=== PATIENT | male | born 1975 | race Two or more races ===

== ENCOUNTER 2022-02-04 13:24 | Inpatient (IN) | payer OTHER ==
[~2022-02-04] VITALS: Ht 167.6 cm; Wt 91.9 kg
[2022-02-04 17:29] LABS: Basophils # (auto) 0.1 10 ^3/uL (0-0.2); Basophils % (auto) 1.2 % (0.0-2.0); Eosinophils # (auto) 0.2 10 ^3/uL (0-0.8); Eosinophils % (auto) 2.6 % (0.0-7.0); Hemoglobin 15.5 g/dL (13.5-17.5); Lymphocytes # (auto) 1.8 10 ^3/uL (0.4-5.4); Lymphocytes % (auto) 20.7 % (10.0-50.0); Mean Corpuscular Hemoglobin 28.1 pg (28.0-32.0); Mean Corpuscular Hgb Conc. 34.4 g/dL (32.0-36.0); Mean Corpuscular Volume 81.8 fL (80.0-100.0); Monocytes % (auto) 10.9 % (0.0-12.0); Neutrophils # (auto) 5.7 10 ^3/uL (1.6-8.6); Neutrophils % (auto) 64.6 % (37.0-80.0); Nucleated Red Blood Cells % 0.2 %; Red Cell Distribution Width 13.9 % (11.8-14.3); White Blood Cell 8.9 10^3/uL (4.4-10.8)
[2022-02-04 17:30] LABS: Albumin 3.2 g/dL (3.4-5.0); Calcium 9.5 mg/dL (8.5-10.1); Potassium 3.2 mmol/L (3.5-5.1)
[2022-02-04 17:34] LABS: BUN/Creatinine Ratio 12.2; Bilirubin, Total 0.3 mg/dL (0.2-1.0); Total Protein 8.1 g/dL (6.4-8.2)
[2022-02-05] MEDS ORDERED: POTASSIUM CHL 20 Meq TABLET PO ONE (02:30)
[2022-02-05] MEDS ORDERED: VANCOMYCIN 1GM/250ML 250 ML IV ONE (02:30)
[2022-02-05] MEDS ORDERED: SODIUM CHLORIDE 0.9% 1,000 ML IV ONE (02:30)
[2022-02-05] MEDS ORDERED: VANCOMYCIN PER PHARMACY 0 MG IV SCH (04:00)
[2022-02-05] MEDS: ENOXAPARIN SOD 100 MG/1 ML SYRINGE SC SCH ×2 (10:00→21:45)
[2022-02-05] MEDS: VANCOMYCIN 1GM/250ML 250 ML IV SCH ×2 (12:00→21:44)
[2022-02-05 13:30] VITALS: BP 124/72
[2022-02-05 14:00] VITALS: BP 124/72
[2022-02-05] MEDS: HYDROcodone-ACET 10/325MG TAB PO PRN ×2 (14:24→20:23)
[2022-02-05 17:00] VITALS: BP 116/78
[2022-02-05 22:00] VITALS: BP 92/52
[2022-02-05] MEDS: PIPERACILLIN-TAZOB 3.375GM 100 ML IV SCH (22:53)
[2022-02-06] MEDS: HYDROcodone-ACET 10/325MG TAB PO PRN (03:49)
[2022-02-06 05:00] VITALS: BP 94/56
[2022-02-06] MEDS: PIPERACILLIN-TAZOB 3.375GM 100 ML IV SCH ×3 (05:18→21:52)
[2022-02-06] MEDS: ENOXAPARIN SOD 100 MG/1 ML SYRINGE SC SCH (08:48)
[2022-02-06] MEDS: VANCOMYCIN 1GM/250ML 250 ML IV SCH ×2 (08:48→18:08)
[2022-02-06 08:50] VITALS: BP 111/72
[2022-02-06 09:05] LABS: INR 1.03 (0.9-1.15); Partial Thromboplastin Time 31.3 sec (24.6-33.4)
[2022-02-06 12:05] LABS: Urine WBC None Seen /hpf (0 - 3)
[2022-02-06 12:31] LABS: Urine Bacteria NONE SEEN /hpf (None Seen); Urine Blood Negative /uL (Negative); Urine Specific Gravity 1.006 (1.001-1.035)
[2022-02-06 13:00] VITALS: BP 113/70
[2022-02-06] MEDS ORDERED: KETOROLAC TROMETH 30 MG/ML 1ML VIAL ONE (16:40)
[2022-02-06] MEDS ORDERED: GLYCOPYRROLATE 0.2 MG/ML 1ML VIAL ONE (16:40)
[2022-02-06] MEDS ORDERED: ONDANSETRON HCL 4 MG/2 ML VIAL ONE (16:40)
[2022-02-06] MEDS ORDERED: PROPOFOL 10 MG/ML 20 ML IV ONE (16:40)
[2022-02-06] MEDS ORDERED: DexAMETHasone SOD PHOS 10MG/1ML VIAL INJ ONE (16:40)
[2022-02-06] MEDS ORDERED: HYDROcodone-ACET 5/325MG TAB PO PRN (17:15)
[2022-02-06] MEDS ORDERED: MORPHINE SULFATE INJ 2 MG/ml SYRG IV PRN (17:15)
[2022-02-06] MEDS: HYDROcodone-ACET 5/325MG TAB PO PRN ×2 (17:54→22:23)
[2022-02-06 22:00] VITALS: BP 126/80
[2022-02-07] MEDS: VANCOMYCIN 1GM/250ML 250 ML IV SCH ×2 (01:42→08:54)
[2022-02-07 05:00] VITALS: BP 99/56
[2022-02-07] MEDS: PIPERACILLIN-TAZOB 3.375GM 100 ML IV SCH (05:03)
[2022-02-07 06:08] LABS: Albumin 2.8 g/dL (3.4-5.0); BUN/Creatinine Ratio 17.1; Calcium 9.2 mg/dL (8.5-10.1); Phosphorus 3.4 mg/dL (2.5-4.90); Potassium 5.1 mmol/L (3.5-5.1)
[2022-02-07 07:45] VITALS: BP 123/78
[2022-02-07 09:00] VITALS: BP 123/78
[2022-02-07] MEDS ORDERED: ENOXAPARIN SOD 40 MG/0.4 ML SYRINGE SC SCH (10:00)
[2022-02-07] MEDS ORDERED: CIPR500T4 PO (10:44)
[2022-02-07 10:59] VITALS: BP 123/78
== END 2022-02-07 11:30 | DRG 603 ==
LOC: EEVIPCON 13:24 → ER 13:24 → OVERFLOW 02-05 04:15 → EAST 02-05 12:55
PROVIDERS: ADMIT Internal Medicine; ATTEND Internal Medicine
PROC: 0W900ZZ Drainage of Head, Open Approach (ICD-10-PCS; principal; 2022-02-06 16:44)
DX: L02.811 Cutaneous abscess of head [any part, except face] (principal); L02.11 Cutaneous abscess of neck; Z83.3 Family history of diabetes mellitus; Z20.822 Contact with and (suspected) exposure to COVID-19; L72.3 Sebaceous cyst
CPT/HCPCS: 36415; 70450; 71045; 80053; 80069; 80202; 81001; 82565; 83605; 84484; 85025; 85610; 85730; 86850; 86900; 86901; 87040; 87070; 87075; 87077; 87186; 87205; 87426; 96361; 96365; G0378; J1100; J1885; J2405; J2543; J2704